=== PATIENT | male | born 1955 | race Caucasian/White ===

== ENCOUNTER → 2018-11-18 | Outpatient (CLI) | payer OTHER | LOC: CAT 14:21 | DX: Z13.6 Encounter for screening for cardiovascular disorders (principal); E78.00 Pure hypercholesterolemia, unspecified; I25.10 Atherosclerotic heart disease of native coronary artery without angina pectoris ==

== ENCOUNTER → 2018-11-18 | Outpatient (CLI) | payer BC | LOC: RAD 14:17 | DX: R06.09 Other forms of dyspnea (principal); R05 Cough ==

== ENCOUNTER 2021-09-16 07:58 | Emergency (ER) | payer BC ==
[~2021-09-16] VITALS: Ht 182.9 cm; Wt 81.7 kg
[2021-09-16 08:22] LABS: ABSOLUTE NEUTROPHILS 3.8 thou/uL (1.4-8.2); BASOPHILS 1.1 % (0.0-2.0); EOSINOPHILS 2.8 % (0.0-3.0); HEMATOCRIT 45.2 % (42.0-52.0); HEMOGLOBIN 14.8 gm/dL (14.0-18.0); LYMPHOCYTES 22.3 % (24.0-44.0); MCH 30.2 pg (26.0-34.0); MCHC 32.6 g/dL (28.0-37.0); MCV 92.4 fL (80.0-100.0); MONOCYTES 9.2 % (1.0-8.0); PLATELET COUNT 196 thou/uL (150-400); POLYS 64.6 % (36.0-66.0); RBC 4.89 mil/uL (4.50-6.00); RDW 12.6 % (10.5-14.5); WBC 5.9 thou/uL (4.0-11.0)
[2021-09-16 08:32] LABS: CALCIUM 9.1 mg/dL (8.5-10.1); CREATININE 1.3 mg/dL (0.7-1.3); POTASSIUM 4.1 mmol/L (3.5-5.1)
[2021-09-16 08:42] LABS: ALBUMIN 3.8 g/dL (3.4-5.0); TOTAL PROTEIN 6.9 g/dL (6.4-8.2)
--- NOTE | 2021-09-16 11:22 | EKG ---
[address] [address] ELECTROCARDIOGRAM REPORT Name: RODO FLORES Room #: [facility]#: [id number] Admission: 09/16/21 Attend Phys: Discharge: Date of : 57 Report #: [id number] [facility] ED Test Date: 2021-09-16 Test Time: 08:06:09 Pat Name: RODO FLORES Department: Room: Gender: M Door Maker: KAYDEN : 1955 Requested By: Raciel Monroy Order Number: [id number] MD: Roosevelt Metzger Measurements Intervals [place] Rate: 75 P: 63 MA: 168 QRS: -30 QRSD: 92 T: 47 QT: 360 QTc: 402 Interpretive Statements Sinus rhythm Probable left atrial enlargement Left axis deviation No previous ECG available for comparison Electronically Signed On 09-16-2021 11:22:03 [employer] by Roosevelt Metzger [email or web address] <ELECTRONICALLY SIGNED> By: Roosevelt Metzger MD, [facility] 09/16/21 1122 08 5 Roosevelt Metzger MD, FACC /EPI
[2021-09-16 13:20] VITALS: BP 132/81
== END 2021-09-16 13:15 | disposition home or self-care (01) ==
LOC: ER 07:58
PROVIDERS: Emergency Medicine
DX: R07.89 Other chest pain (principal); Z20.822 Contact with and (suspected) exposure to COVID-19

== ENCOUNTER → 2021-09-17 | Outpatient (CLI) | payer BC | LOC: SJCVCIMAG 06:47 | PROVIDERS: ATTEND Internal Medicine | DX: R07.9 Chest pain, unspecified (principal) ==